=== PATIENT | male | born 1940 | race Caucasian/White ===

== ENCOUNTER 2017-08-02 13:38 | Inpatient (IN) | payer OTHER ==
[~2017-08-02] VITALS: Ht 162.6 cm; Wt 61.0 kg
[~2017-08-02 13:38] MED LIST: ACET325 PO; ACET500 PO; ALBIPROI INH; ALBU.083IS IH; ALBU3IS INH; ALBU90OI INH; AMLO5 PO; ASPI325; AZIT250 PO; Ativan0.5 MG PO; CIPR500 PO; CYCL10 PO; Calcium Carbon500 MG PO; Cipro500 MG PO; FLUO20 PO; FLUSAL1005 IH; HYDACE5 PO; HYDCHL12.5 PO; HYDGUAL120 PO; HYDR1TAB94 PO; IBUP400 PO; IBUP800 PO; LEVFLO500 PO; LEVO750; LEVO750 PO; LORA1 PO; METPRE4DP PO; MULVITMIND PO; Miralax17 GM PO; NAPR550 PO; Norco 5-325 Ta1 EACH PO; OMEP10ER PO; OMEPRAZOLE MAGN20 MG PO; OXYACE5T PO; PRED10 PO; PRED20 PO; PROBIOTIC250 MG; PROCODE120 PO; Percocet 5-3251 EACH PO; Prednisone20 MG PO; Prilosec Otc20 MG PO; SPACE CHAMBER1 EACH INH; TIOT18 INH; VENTOLIN INH; Ventolin Soln3 ML INH; [UNRECOGNIZED DRUG - OTHER] INH; [UNRECOGNIZED DRUG - REMARK]
[2017-08-02 14:09] LABS: BASOPHILS ABSOLUTE AUTO 0.06 K/mm3 (0.00-0.23); BASOPHILS PERCENT AUTO 0 % (0-2); EOSINOPHILS ABSOLUTE AUTO 0.12 K/mm3 (0.00-0.68); EOSINOPHILS PERCENT AUTO 1 % (0-6); Hematocrit 42.4 % (37.0-53.0); Hemoglobin 13.9 g/dL (13.5-17.5); IMMATURE GRAN ABSOLUTE AUTO 0.05 K/mm3 (0.00-0.10); IMMATURE GRAN PERCENT AUTO 0 % (0-1); LYMPHOCYTES ABSOLUTE AUTO 1.09 K/mm3 (0.84-5.20); LYMPHOCYTES PERCENT AUTO 8 % (21-46); MONOCYTES ABSOLUTE AUTO 0.42 K/mm3 (0.16-1.47); MONOCYTES PERCENT AUTO 3 % (4-13); Mean Corpuscular HGB 30.3 pg (26.0-34.0); Mean Corpuscular HGB Conc 32.8 g/dL (31.5-36.5); Mean Corpuscular Volume 93 fL (80-100); Mean Platelet Volume 10.4 fL (9.1-12.4); NEUTROPHILS ABSOLUTE AUTO 11.94 K/mm3 (1.96-9.15); NEUTROPHILS PERCENT AUTO 87 % (41-73); Platelet Count 262 K/mm3 (150-400); RDW Standard Deviation 47.8 fL (35.1-46.3); Red Blood Cell Count 4.58 M/mm3 (4.30-5.90); White Blood Cell Count 13.68 K/mm3 (4.00-11.30)
[2017-08-02 14:30] LABS: Alanine Aminotransfer (ALT/SGP 15 U/L (12-78); Albumin, Blood 3.7 g/dL (3.4-5.0); Alk Phos 68 U/L (50-136); Anion Gap 5 mmol/L (6-16); Aspartate Aminotrans (AST/SGOT 16 U/L (12-37); Bilirubin, Total 0.6 mg/dL (0.1-1.0); Blood Urea Nitrogen 17 mg/dL (8-24); Bun/Creatinine Ratio 17.2 (12.0-20.0); CO2, Blood 29 mmol/L (21-32); Chloride, Blood 103 mmol/L (98-108); Creatinine, Blood 0.99 mg/dL (0.60-1.20); Globulin, Blood 3.6 g/dL (2.2-4.0); Glomerular Filtration Rate >60 (60-); Glucose, Blood 122 mg/dL (70-99); Potassium, Blood 3.9 mmol/L (3.5-5.5); Sodium, Blood 137 mmol/L (136-145); Total Protein, Blood 7.3 g/dL (6.4-8.2); Troponin I <0.015 ng/mL (0.000-0.040)
[2017-08-03 05:20] LABS: BASOPHILS ABSOLUTE AUTO 0.01 K/mm3 (0.00-0.23); BASOPHILS PERCENT AUTO 0 % (0-2); EOSINOPHILS PERCENT AUTO 0 % (0-6); Hematocrit 41.3 % (37.0-53.0); Hemoglobin 13.5 g/dL (13.5-17.5); IMMATURE GRAN ABSOLUTE AUTO 0.05 K/mm3 (0.00-0.10); IMMATURE GRAN PERCENT AUTO 0 % (0-1); LYMPHOCYTES ABSOLUTE AUTO 0.44 K/mm3 (0.84-5.20); LYMPHOCYTES PERCENT AUTO 4 % (21-46); MONOCYTES ABSOLUTE AUTO 0.13 K/mm3 (0.16-1.47); MONOCYTES PERCENT AUTO 1 % (4-13); Mean Corpuscular HGB 29.4 pg (26.0-34.0); Mean Corpuscular HGB Conc 32.7 g/dL (31.5-36.5); NEUTROPHILS PERCENT AUTO 95 % (41-73); Platelet Count 207 K/mm3 (150-400); RDW Coefficient Variation 13.8 % (11.7-14.2); RDW Standard Deviation 45.1 fL (35.1-46.3); Red Blood Cell Count 4.59 M/mm3 (4.30-5.90); White Blood Cell Count 11.43 K/mm3 (4.00-11.30)
[2017-08-03 05:24] LABS: Mean Corpuscular Volume 90 fL (80-100)
[2017-08-03 05:36] LABS: Anion Gap 10 mmol/L (6-16); Blood Urea Nitrogen 19 mg/dL (8-24); Bun/Creatinine Ratio 21.1 (12.0-20.0); CO2, Blood 26 mmol/L (21-32); Calcium, Blood 8.6 mg/dL (8.5-10.1); Chloride, Blood 102 mmol/L (98-108); Glomerular Filtration Rate >60 (60-); Glucose, Blood 169 mg/dL (70-99); Potassium, Blood 3.8 mmol/L (3.5-5.5); Sodium, Blood 138 mmol/L (136-145)
[2017-08-03 10:45] LABS: Influenza A Negative (NEGATIVE); Influenza B Negative (NEGATIVE)
[2017-08-03 15:52] LABS: CHOL/HDL RATIO 2.1; Cholesterol 158 mg/dL (50-200); HDL Cholesterol 75 mg/dL (>39); LDL/HDL RATIO 0.9; Low Density Lipoprotein Chol 67 mg/dL (0-110); Triglycerides 82 mg/dL (30-160); Very Low Density Lipoprot Chol 16 mg/dL (6-32)
[2017-08-05] MEDS ORDERED: LEVFLO500 PO (11:58)
[2017-08-05] MEDS ORDERED: BENZ100A PO (11:58)
[2017-08-05] MEDS ORDERED: PRED20 PO (11:59)
== END 2017-08-05 13:03 | disposition home or self-care (01) | DRG 189 ==
LOC: ER 13:38 → MEDS 16:28 → ENPENDDIS 08-05 10:11 → MEDS 08-05 13:03
PROVIDERS: Emergency Medicine; Internal Medicine
DX: J96.01 Acute respiratory failure with hypoxia (principal); J44.1 Chronic obstructive pulmonary disease with (acute) exacerbation; K21.9 Gastro-esophageal reflux disease without esophagitis; I10 Essential (primary) hypertension; F17.220 Nicotine dependence, chewing tobacco, uncomplicated; Z86.73 Personal history of transient ischemic attack (TIA), and cerebral infarction without residual deficits; Z88.5 Allergy status to narcotic agent; Z88.0 Allergy status to penicillin; Z79.899 Other long term (current) drug therapy
CPT/HCPCS: 36415; 71046; 80048; 80053; 80061; 83036; 83605; 83880; 84484; 85025; 85379; 87040; 87070; 87077; 87186; 87205; 87804; 93005; 93010; 93306; 94640; 94760; 96374; 96375; 99285; J0456; J0696; J1650; J1885; J1956; J2920; J2930; J7030; J7050; J7120

== ENCOUNTER 2017-11-20 18:58 | Emergency (ER) | payer OTHER ==
[~2017-11-20] VITALS: Ht 162.6 cm; Wt 72.6 kg
[~2017-11-20 18:58] MED LIST changes: +BENZ100A PO
[2017-11-20] MEDS ORDERED: Norco 5-325 Ta1 EACH PO (20:20)
[2017-11-20] MEDS ORDERED: ALLO100 PO (20:20)
[2017-11-20] MEDS ORDERED: NAPR550 PO (20:20)
== END 2017-11-20 20:35 | disposition home or self-care (01) ==
LOC: ER 18:58
DX: M10.9 Gout, unspecified (principal); M19.071 Primary osteoarthritis, right ankle and foot; J44.9 Chronic obstructive pulmonary disease, unspecified; Z86.73 Personal history of transient ischemic attack (TIA), and cerebral infarction without residual deficits
CPT/HCPCS: 73600; 99283-25

== ENCOUNTER 2018-04-18 10:58 | Emergency (ER) | payer OTHER ==
[~2018-04-18] VITALS: Ht 162.6 cm; Wt 63.5 kg
[~2018-04-18 10:58] MED LIST changes: +ALLO100 PO; +Zithromax250 MG PO
[2018-04-18 12:11] LABS: BASOPHILS ABSOLUTE AUTO 0.11 K/mm3 (0.00-0.23); BASOPHILS PERCENT AUTO 2 % (0-2); EOSINOPHILS ABSOLUTE AUTO 0.34 K/mm3 (0.00-0.68); EOSINOPHILS PERCENT AUTO 7 % (0-6); Hematocrit 41.3 % (37.0-53.0); Hemoglobin 13.5 g/dL (13.5-17.5); IMMATURE GRAN PERCENT AUTO 0 % (0-1); LYMPHOCYTES ABSOLUTE AUTO 0.83 K/mm3 (0.84-5.20); LYMPHOCYTES PERCENT AUTO 16 % (21-46); MONOCYTES PERCENT AUTO 10 % (4-13); Mean Corpuscular HGB 30.3 pg (26.0-34.0); Mean Corpuscular HGB Conc 32.7 g/dL (31.5-36.5); Mean Corpuscular Volume 93 fL (80-100); Mean Platelet Volume 10.9 fL (9.1-12.4); NEUTROPHILS ABSOLUTE AUTO 3.49 K/mm3 (1.96-9.15); NEUTROPHILS PERCENT AUTO 66 % (41-73); Platelet Count 283 K/mm3 (150-400); RDW Coefficient Variation 12.9 % (11.7-14.2); RDW Standard Deviation 43.8 fL (35.1-46.3); Red Blood Cell Count 4.45 M/mm3 (4.30-5.90); White Blood Cell Count 5.27 K/mm3 (4.00-11.30)
[2018-04-18 12:29] LABS: Alanine Aminotransfer (ALT/SGP 18 U/L (12-78); Albumin, Blood 3.5 g/dL (3.4-5.0); Albumin/Globulin Ratio 0.9 (0.8-1.8); Alk Phos 72 U/L (50-136); Anion Gap 6 mmol/L (6-16); Aspartate Aminotrans (AST/SGOT 21 U/L (12-37); Bilirubin, Total 0.4 mg/dL (0.1-1.0); Blood Urea Nitrogen 13 mg/dL (8-24); CO2, Blood 29 mmol/L (21-32); Calcium, Blood 8.9 mg/dL (8.5-10.1); Chloride, Blood 105 mmol/L (98-108); Creatinine, Blood 0.87 mg/dL (0.60-1.20); Globulin, Blood 3.8 g/dL (2.2-4.0); Glomerular Filtration Rate >60 (60-); Glucose, Blood 95 mg/dL (70-99); Potassium, Blood 3.6 mmol/L (3.5-5.5); Sodium, Blood 140 mmol/L (136-145); Total Protein, Blood 7.3 g/dL (6.4-8.2); Troponin I <0.015 ng/mL (0.000-0.040)
[2018-04-18] MEDS ORDERED: Prednisone20 MG PO (13:53)
[2018-04-18] MEDS ORDERED: ALBU3IS INH (13:53)
[2018-04-18] MEDS ORDERED: Zithromax250 MG PO (13:53)
[2018-04-18] MEDS ORDERED: ROBITUSSIN COU237 ML PO (13:53)
[2018-04-18] MEDS ORDERED: TRAM50 PO (15:05)
== END 2018-04-18 15:10 | disposition home or self-care (01) ==
LOC: ER 10:58
PROVIDERS: Physician Assistant
DX: J44.1 Chronic obstructive pulmonary disease with (acute) exacerbation (principal); I10 Essential (primary) hypertension; F17.220 Nicotine dependence, chewing tobacco, uncomplicated; Z79.899 Other long term (current) drug therapy; Z88.0 Allergy status to penicillin; Z86.73 Personal history of transient ischemic attack (TIA), and cerebral infarction without residual deficits
CPT/HCPCS: 36415; 71046; 80053; 83880; 84484; 85025; 93005; 93010; 94640; 96365; 96366; 96375; 99285-25; J0456; J1885; J2930; J7050

== ENCOUNTER 2018-06-05 19:18 | Emergency (ER) | payer OTHER ==
[~2018-06-05] VITALS: Ht 162.6 cm; Wt 73.0 kg
[~2018-06-05 19:18] MED LIST changes: +ROBITUSSIN COU237 ML PO; +TRAM50 PO
[2018-06-05 21:05] LABS: Source, Urine Clean Catch
[2018-06-05 21:12] LABS: Bilirubin, Urine Neg (Neg); Blood, Urine Neg (Neg); Glucose Qualitative, Urine Neg (Neg); Ketones, Urine Neg (Neg); Leukocyte Esterase, Urine Neg (Neg); Nitrite, Urine Neg (Neg); Protein, Urine 1+ (Neg); Specific Gravity, Urine 1.025 (1.003-1.022); Urobilinogen, Urine 1+ (Normal)
[2018-06-05 21:14] LABS: Appearance, Urine Clear (Clear); Color, Urine Amber (P-Yellow)
[2018-06-05] MEDS ORDERED: Magnesium Citr296 ML PO (23:31)
== END 2018-06-05 23:43 | disposition home or self-care (01) ==
LOC: ER 19:18
PROVIDERS: Physician Assistant
DX: N43.3 Hydrocele, unspecified (principal); I86.1 Scrotal varices; I10 Essential (primary) hypertension; J45.909 Unspecified asthma, uncomplicated; Z86.73 Personal history of transient ischemic attack (TIA), and cerebral infarction without residual deficits; Z88.0 Allergy status to penicillin; Z79.2 Long term (current) use of antibiotics; Z79.52 Long term (current) use of systemic steroids; Z79.899 Other long term (current) drug therapy; Z87.891 Personal history of nicotine dependence; Z98.890 Other specified postprocedural states
CPT/HCPCS: 36415; 74176; 76870; 96374; 96375; 99284-25; J1885; J3010

== ENCOUNTER 2018-06-20 19:45 | Emergency (ER) | payer OTHER ==
[~2018-06-20] VITALS: Ht 162.6 cm; Wt 66.2 kg
[~2018-06-20 19:45] MED LIST changes: +Magnesium Citr296 ML PO
[2018-06-21 07:18] LABS: Appearance, Urine Clear (Clear); Bilirubin, Urine Neg (Neg); Blood, Urine 1+ (Neg); Color, Urine Pale Yellow (P-Yellow); Glucose Qualitative, Urine Neg (Neg); Ketones, Urine Neg (Neg); Leukocyte Esterase, Urine Neg (Neg); Nitrite, Urine Neg (Neg); Protein, Urine Neg (Neg); Specific Gravity, Urine 1.005 (1.003-1.022); Urobilinogen, Urine NORM (Normal)
[2018-06-21 07:36] LABS: Bacteria Not Seen /hpf; Red Blood Cells, Urine Rare /hpf (0-2); Squamous Epithelial Cells Not Seen /hpf (Few); White Blood Cells, Urine Not Seen /hpf (0-5)
== END 2018-06-21 00:15 | disposition home or self-care (01) ==
LOC: ER 19:45
PROVIDERS: Emergency Medicine
DX: M54.5 Low back pain (principal)
CPT/HCPCS: 72070; 72100; 72170; 81001; 96372; 99283-25; J1885

== ENCOUNTER 2018-06-26 13:55 | Inpatient (IN) | payer OTHER ==
[~2018-06-26] VITALS: Ht 162.6 cm; Wt 64.4 kg
[2018-06-26 14:51] LABS: BASOPHILS PERCENT AUTO 1 % (0-2); EOSINOPHILS PERCENT AUTO 1 % (0-6); Hemoglobin 14.2 g/dL (13.5-17.5); IMMATURE GRAN ABSOLUTE AUTO 0.06 K/mm3 (0.00-0.10); IMMATURE GRAN PERCENT AUTO 0 % (0-1); LYMPHOCYTES ABSOLUTE AUTO 0.81 K/mm3 (0.84-5.20); LYMPHOCYTES PERCENT AUTO 5 % (21-46); MONOCYTES ABSOLUTE AUTO 1.49 K/mm3 (0.16-1.47); MONOCYTES PERCENT AUTO 9 % (4-13); Mean Corpuscular HGB 30.7 pg (26.0-34.0); Mean Corpuscular HGB Conc 32.3 g/dL (31.5-36.5); Mean Corpuscular Volume 95 fL (80-100); Mean Platelet Volume 11.1 fL (9.1-12.4); NEUTROPHILS ABSOLUTE AUTO 13.54 K/mm3 (1.96-9.15); NEUTROPHILS PERCENT AUTO 84 % (41-73); Platelet Count 170 K/mm3 (150-400); RDW Coefficient Variation 14.1 % (11.7-14.2); RDW Standard Deviation 49.2 fL (35.1-46.3); Red Blood Cell Count 4.62 M/mm3 (4.30-5.90)
[2018-06-26 14:59] LABS: Influenza A Negative (NEGATIVE); Influenza B Negative (NEGATIVE)
[2018-06-26 15:16] LABS: Alanine Aminotransfer (ALT/SGP 15 U/L (12-78); Albumin, Blood 3.8 g/dL (3.4-5.0); Albumin/Globulin Ratio 1.2 (0.8-1.8); Alk Phos 79 U/L (50-136); Anion Gap 7 mmol/L (6-16); Aspartate Aminotrans (AST/SGOT 22 U/L (12-37); Bilirubin, Total 0.6 mg/dL (0.1-1.0); Blood Urea Nitrogen 18 mg/dL (8-24); Bun/Creatinine Ratio 20.6 (12.0-20.0); CO2, Blood 27 mmol/L (21-32); Chloride, Blood 103 mmol/L (98-108); Creatinine, Blood 0.87 mg/dL (0.60-1.20); Globulin, Blood 3.3 g/dL (2.2-4.0); Glomerular Filtration Rate >60 (60-); Glucose, Blood 100 mg/dL (70-99); Potassium, Blood 3.9 mmol/L (3.5-5.5); Sodium, Blood 137 mmol/L (136-145); Total Protein, Blood 7.1 g/dL (6.4-8.2)
[2018-06-26 15:28] LABS: Troponin I 0.655 ng/mL (0.000-0.040)
[2018-06-26] MEDS ORDERED: GABA100 PO (16:42)
[2018-06-26] MEDS ORDERED: IBUP400 PO (17:05)
--- NOTE | 2018-06-26 20:30 | NUR ---
2030 ADMIT: PT ARRIVES TO ROOM 215 VIA GOURNEY AND TRANSFERS SELF TO BED WITH 1 PERSON ASSIST. PT REMOVES STREET CLOTHES AND BELONGINGS PLACED IN BAG AT SIDE OF BED. PT APPEARS STEADY ON FEET BUT HAS INCREASED SOB WITH EXERTION; 2L O2 VIA NC FOR PT COMFORT. PT ORIENTED TO ROOM, BED, PHONE, CALL SYSTEM AND VERBALIZES UNDERSTANDING. PT ANTICIPATES THAT HIS SON WILL BE STAYING THE NIGHT WITH HIM. CALL LIGHT PLACED IN REACH.
[2018-06-27 05:06] LABS: BASOPHILS ABSOLUTE AUTO 0.03 K/mm3 (0.00-0.23); BASOPHILS PERCENT AUTO 0 % (0-2); EOSINOPHILS PERCENT AUTO 0 % (0-6); Hematocrit 40.4 % (37.0-53.0); Hemoglobin 12.8 g/dL (13.5-17.5); IMMATURE GRAN ABSOLUTE AUTO 0.16 K/mm3 (0.00-0.10); IMMATURE GRAN PERCENT AUTO 1 % (0-1); LYMPHOCYTES ABSOLUTE AUTO 0.43 K/mm3 (0.84-5.20); LYMPHOCYTES PERCENT AUTO 3 % (21-46); MONOCYTES ABSOLUTE AUTO 0.42 K/mm3 (0.16-1.47); MONOCYTES PERCENT AUTO 3 % (4-13); Mean Corpuscular HGB 30.6 pg (26.0-34.0); Mean Corpuscular HGB Conc 31.7 g/dL (31.5-36.5); Mean Corpuscular Volume 97 fL (80-100); Mean Platelet Volume 10.6 fL (9.1-12.4); NEUTROPHILS ABSOLUTE AUTO 15.22 K/mm3 (1.96-9.15); NEUTROPHILS PERCENT AUTO 94 % (41-73); Platelet Count 182 K/mm3 (150-400); RDW Coefficient Variation 14.1 % (11.7-14.2); RDW Standard Deviation 50.3 fL (35.1-46.3); Red Blood Cell Count 4.18 M/mm3 (4.30-5.90); White Blood Cell Count 16.26 K/mm3 (4.00-11.30)
[2018-06-27 05:30] LABS: Anion Gap 8 mmol/L (6-16); Blood Urea Nitrogen 17 mg/dL (8-24); Bun/Creatinine Ratio 17.8 (12.0-20.0); CO2, Blood 26 mmol/L (21-32); Calcium, Blood 8.3 mg/dL (8.5-10.1); Chloride, Blood 105 mmol/L (98-108); Creatinine, Blood 0.96 mg/dL (0.60-1.20); Glomerular Filtration Rate >60 (60-); Glucose, Blood 195 mg/dL (70-99); Potassium, Blood 4.1 mmol/L (3.5-5.5); Sodium, Blood 139 mmol/L (136-145)
--- NOTE | 2018-06-27 13:35 | NUR ---
CHEST AND JAW PAIN PT C/O INTERMITTENT SEVERE CHEST AND JAW PAIN. STATED COULD NOT RATE ON PAIN SCALE BUT WHEN IT OCCURRS, IT IS SEVERE. BP 118/65. RR 24. 02 SATS IN 90S. HR 99. CALLED DR ROSEN. EKG PERFORMED. SHOWED RESULTS TO DR ROSEN. ADMINISTERED 0.4 MG SL NITRO PER DR ROSEN'S VERBAL ORDER AND PLACED PT ON 2L NC. PT REPORTS PAIN IS IMPROVING.
[2018-06-27] MEDS ORDERED: Prilosec Otc20 MG PO (13:52)
--- NOTE | 2018-06-27 14:09 | NUR ---
pt reports pain to jaw and chest has resolved.
--- NOTE | 2018-06-27 14:31 | NUR ---
DR ROSEN IN TO SEE PT.
--- NOTE | 2018-06-27 18:42 | NUR ---
SUMMARY PT HAD TWO EPISODES OF CP/JAW PAIN. FIRST EPISODE, DR ROSEN NOTIFIED AND EKG DONE AND NITRO GIVEN. PAIN RESOLVED. SECOND EPISODE, NITRO GIVEN AND PAIN AGAIN RESOLVED. DISCOVERED PT HAD CHEW IN BED W/HIM. ADVISED HIM THAT MAY EXACERBATE PROBLEMS, PT HAD STAFF PUT CHEW AWAY AND SAID WOULD NO LONGER USE IT. VSS, PT VOIDING IN TOILET. HAD BM.
--- NOTE | 2018-06-27 19:11 | NUR ---
REPORT GIVEN TO ONCOMING SHIFT.
--- NOTE | 2018-06-27 23:37 | NUR ---
PT WITH ONGOING INTERMITTENT PAIN TO JAW AND CHEST TONIGHT S/P EKG,NITRO TODAY I CALL[facility] TO [facility] ONGOING. ALSO REVIEWED LABS,VS,PT MEDS ORDERS WERE WRITTEN AND NEW MEDS STARTED.TELE NOT ORDERED. EKG TO BE REPEATED IN AM.
--- NOTE | 2018-06-28 00:45 | NUR ---
RECEIVED HAND OFF FROM Erika RUIZ RN USING SBAR DURING BEDSIDE REPORT. LYING IN SEMI FOWLERS WITH EYES OPEN. C/O BILATERAL MANDIBULAR AND SUPRACALVICULAR PAIN. PT FURTHER STATES THAT PAIN OCCURS IN THE CHEST WALL AFTER HE COUGHS, RATES IT AT A 3/10. VSS, BP REMAINING LOW, BUT WITHIN LIMITS. DENIES FURTHER NEEDS OR WANTS AT THIS TIME. SAFETY MEASURES IN PLACE. WILL CONTINUE TO MONITOR.
--- NOTE | 2018-06-28 01:30 | NUR ---
LYING IN SEMI FOWLERS WITH EYES CLOSED. RESPIRATIONS EVEN AND UNLABORED. SAFETY MEASURES IN PLACE. WILL CONTINUE TO MONITOR.
--- NOTE | 2018-06-28 03:00 | NUR ---
LYING IN SEMI FOWLERS WITH EYES CLOSED. RESPIRATIONS EVEN AND UNLABORED. SAFETY MEASURES IN PLACE. WILL CONTINUE TO MONITOR.
--- NOTE | 2018-06-28 05:00 | NUR ---
LYING IN SEMI FOWLERS WITH EYES OPEN. AAO X3, HUITRON, FOLLOWS ALL COMMANDS. DENIES ANY PAIN OR DISCOMFORT AT THIS TIME. STATES THAT HE RESTED WELL THIS SHIFT AND DENIES FURTHER NEEDS AT THIS TIME. SAFETY MEASURES IN PLACE. WILL GIVE HAMD OFF TO ONCOMING SHIFT USING SBAR.
--- NOTE | 2018-06-28 12:19 | NUR ---
ABX STARTED PER EMAR ORDERS. PT TALKING ON PHONE WITH FAMILY.
--- NOTE | 2018-06-28 13:06 | NUR ---
SOB PT REPOTED INCREASED SOB TO STAFF DURING ROUNDING. O2 SATURATIONS 90% ON 2L O2. PT REPORTED BRIEF CHEST PAIN THAT HE SAID RESOLVED QUICKLY. HERBIE RT CALLED FOR BREATHING TREATMENT. PT POSSITIONED FOR EASE OF BREATHING.
--- NOTE | 2018-06-28 13:41 | NUR ---
DR. STOCKTON NOTIFIED OF INCREASED SOB AND SOME TIGHTNESS WHICH STARTED IN THE PATIENTS CHEST AND HE NOW REPORTS IN HIS UPPER ABD. PT DENIES CHEST PAIN. PT REPORTED SOB WITH UNRELIEVED AFTER A BREATHING TREATMENT. RR AND EFFORT INCREASED; RR OF 28. WILL CONTINUE TO MONITOR.
--- NOTE | 2018-06-28 13:47 | NUR ---
DR. STOCKTON TO SEE PT AT THIS TIME. WILL CONTINUE TO MONITOR.
--- NOTE | 2018-06-28 14:54 | NUR ---
Ecgicardiogram completed.
--- NOTE | 2018-06-28 15:06 | NUR ---
CHEST PAIN PT STARTED TO COMPLAIN OF CHEST PAIN AT APPROXIMATELY 1552. DR. STOCKTON WAS NOTIFIED. ORDER RECIEVED TO GIVE NITRO DESPITE PLAN FOR STRESS TEST, NITRO GIVEN AT 1456. BY 1501 PAIN AND PRESSURE TO CHEST, JAW AND LUQ RESOLVED. WILL CONTINUE TO MONITOR.
[2018-06-28 15:46] LABS: Troponin I 0.169 ng/mL (0.000-0.040)
[2018-06-28 15:49] LABS: PCO2 Arterial 41.4 mmHg (35-45); PO2 Arterial 66.2 mmHg (80-100); pH Blood Arterial 7.44 (7.35-7.45)
--- NOTE | 2018-06-28 15:58 | NUR ---
ELEVATED TROPONIN DR. STOCKTON NOTIFIED THAT LAB RESULTS ARE AVALIABLE. NOTIFIED THAT TROPONIN IS ELEVATED BUT LESS THAN PREVIOUS DRAW AND CHEST PAIN RESOLVED WITH NITRO. WILL CONTINUE TO MONITOR.
--- NOTE | 2018-06-28 17:59 | NUR ---
SHIFT SUMMARY PLAN FOR SECOND HALF OF STRESS TEST TOMORROW AFTER 3PM; PT REQUIRED NITRO X1 FOR CHEST PAIN THIS AFTERNOON. PT COMPLAINED OF SOB WHICH RESOLVED AFTER LASIX WAS GIVEN. PT IS A 1 ASSIST WHEN OOB. VSS. WILL MONITOR UNTIL REPORT TO ONCOMING RN.
--- NOTE | 2018-06-29 07:48 | NUR ---
SUMMARY PT WITH REPORT OF NO CHEST OR JAW PAIN TONIGHT. PENDING SECOND PART OF STRESS TEST TODAY. NPO AFTER BREAKFAST AND VERB UNDERSTANDING OF NO CAFFFIENE.
--- NOTE | 2018-06-29 19:47 | NUR ---
SHIFT SUMMARY PT HAS DENIED CP T/O THE SHIFT. HE HAS BEEN SOB WITH ACTIVITY BUT RECOVERS QUICKLY. PT IS A SBA WITH WALKER WHEN OOB. PT HAS HAD VISITORS AT THE BEDSIDE T/O THE DAY. REPORT GIVEN TO ALVA SANTIAGO.
--- NOTE | 2018-06-29 22:45 | NUR ---
WOULD BE MORE COMFORTABLE WITH HIS SON HELPING HIM.
--- NOTE | 2018-06-30 03:50 | NUR ---
SHIFT SUMMARY PT A&O X4 T/O SHIFT. WHEEZES IN BILAT LUNGS; COUGH NOTED; 2L O2 VIA NC. RESP TX PER RT. PT DENIES CHEST PRESSURE/PAIN AND JAW PAIN T/O SHIFT. SCD'S TO BLE'S. PT'S SON IN ROOM DURING MOST OF THE SHIFT. CALL LIGHT IN REACH; PT DEMONSTRATES USE. WCTM UNTIL REPORT TO DAY SHIFT RN.
[2018-06-30 04:31] LABS: Hematocrit 39.7 % (37.0-53.0); Hemoglobin 12.9 g/dL (13.5-17.5); Mean Corpuscular HGB 30.4 pg (26.0-34.0); Mean Corpuscular HGB Conc 32.5 g/dL (31.5-36.5); Mean Corpuscular Volume 94 fL (80-100); Mean Platelet Volume 10.9 fL (9.1-12.4); Platelet Count 250 K/mm3 (150-400); RDW Standard Deviation 48.5 fL (35.1-46.3); Red Blood Cell Count 4.24 M/mm3 (4.30-5.90); White Blood Cell Count 7.54 K/mm3 (4.00-11.30)
[2018-06-30 04:52] LABS: Anion Gap 8 mmol/L (6-16); Blood Urea Nitrogen 24 mg/dL (8-24); Bun/Creatinine Ratio 25.2 (12.0-20.0); CO2, Blood 31 mmol/L (21-32); Calcium, Blood 8.8 mg/dL (8.5-10.1); Chloride, Blood 103 mmol/L (98-108); Creatinine, Blood 0.95 mg/dL (0.60-1.20); Glomerular Filtration Rate >60 (60-); Glucose, Blood 84 mg/dL (70-99); Potassium, Blood 3.8 mmol/L (3.5-5.5); Sodium, Blood 142 mmol/L (136-145)
--- NOTE | 2018-06-30 09:00 | NUR ---
DR IN TO SEE PATIENT. PATIENT UP IN CHAIR. ENCOURAGING AMBULATION.
--- NOTE | 2018-06-30 17:45 | NUR ---
PT HAS BEEN STABLE THIS SHIFT. PT HAS BEEN TITRATED TO ROOM AIR. PT HAS TAKEN SEVERAL SHORT WALKS WITH 1 PERSON ASSIST. PT HAS SOB WITH MUCH EXERTION. LS WITH WHEEZES T/O. PT HAS DRY COUGH. CONT IV ABX. SON AT BEDSIDE, ATTENTIVE. PT EATING AND VOIDING WELL. USES CALL LIGHT APPROPRIATELY PRN.
--- NOTE | 2018-07-01 18:40 | NUR ---
SHIFT SUMMARY PT A&OX4, VSS, [employer], RA WHILE AWAKE, 1L AT REST. AMB IND TO BRP AND HALLWAY, SON IS AT PT SIDE. SL EXCEPT FOR ABX 1XP, NEBS SCHED. PAIN MED 5 MG X1. PLAN IS FOR PT TO DC TOMORROW. WCTM & TX PER EMAR UNTIL REPORT GIVEN TO ONCOMING NOC RN.
--- NOTE | 2018-07-02 06:20 | NUR ---
LYING IN SEMI FOWLERS WITH EYES OPEN WHILE DRINKING COFFEE. MEDICATED FOR PAIN X1 THIS SHIFT. HAS HAD NO OTHER C/O PAIN OR DISCOMFORT. DENIES FURTHER NEEDS AT THIS TIME. SAFETY MEASURES IN PLACE. WILL GIVE HAND OFF TO ONCOMING SHIFT USING SBAR.
[2018-07-02] MEDS ORDERED: ACET325 PO (12:12)
[2018-07-02] MEDS ORDERED: DOXY100 PO (12:13)
[2018-07-02] MEDS ORDERED: ALBU3IS INH (12:13)
[2018-07-02] MEDS ORDERED: FURO20 PO (12:14)
[2018-07-02] MEDS ORDERED: GUAI600T33 PO (12:16)
[2018-07-02] MEDS ORDERED: Acidophilus La100 GM PO (12:17)
[2018-07-02] MEDS ORDERED: DULERA 200 MCG/13 GM INH (12:18)
[2018-07-02] MEDS ORDERED: DELTASONE20 MG PO (12:19)
--- NOTE | 2018-07-02 13:09 | NUR ---
DISCHARGE PT PROVIDED WITH WRITTEN AND VERBAL DISCHARGE INSTRUCTIONS. PT AND FAMILY REPORTED UNDERSTANDING INSTRUCTIONS. PRESCRIPTIONS FAXED TO PT'S PHARMACY.
== END 2018-07-02 13:09 | disposition home or self-care (01) | DRG 871 ==
LOC: ER 13:55 → SURS 16:35 → ERHOLD 16:35 → SURS 20:39 → ENPENDDIS 07-02 09:51 → SURS 07-02 13:09
PROVIDERS: Physician Assistant; ADMIT Internal Medicine
DX: A41.01 Sepsis due to Methicillin susceptible Staphylococcus aureus (principal); J18.9 Pneumonia, unspecified organism; J44.1 Chronic obstructive pulmonary disease with (acute) exacerbation; J44.0 Chronic obstructive pulmonary disease with (acute) lower respiratory infection; E44.0 Moderate protein-calorie malnutrition; R65.20 Severe sepsis without septic shock; K21.9 Gastro-esophageal reflux disease without esophagitis; I10 Essential (primary) hypertension; R07.9 Chest pain, unspecified; G89.29 Other chronic pain; M54.9 Dorsalgia, unspecified; Z51.5 Encounter for palliative care; Z88.0 Allergy status to penicillin; Z86.73 Personal history of transient ischemic attack (TIA), and cerebral infarction without residual deficits; Z87.891 Personal history of nicotine dependence; Z68.24 Body mass index [BMI] 24.0-24.9, adult
CPT/HCPCS: 36415; 36600; 71046; 78452; 80048; 80053; 82550; 82803; 83605; 83880; 84145; 84484; 85025; 85027; 87040; 87070; 87077; 87186; 87205; 87804; 93005; 93010; 93017; 93306; 94640; 94760; 96361; 96365; 96375; 97110; 97162; 97530; 99285-25; A9270-GY; A9500; J0456; J0696; J0706; J1650; J1885; J1940; J1956; J2405; J2785; J7030; J7050

== ENCOUNTER 2019-01-09 19:54 | Emergency (ER) | payer OTHER ==
[~2019-01-09] VITALS: Ht 162.6 cm; Wt 69.0 kg
[~2019-01-09 19:54] MED LIST changes: +ASPI81CH PO; +Acidophilus La100 GM PO; +DELTASONE20 MG PO; +DOXY100 PO; +DULERA 200 MCG/13 GM INH; +FURO20 PO; +GABA100 PO; +GUAI600T33 PO
[2019-01-09] MEDS ORDERED: Benadryl Itch28.3 G1 TOP (21:44)
[2019-01-09] MEDS ORDERED: METPRE4DP PO (21:44)
== END 2019-01-09 22:11 | disposition home or self-care (01) ==
LOC: ER 19:54
DX: T60.1X1A Toxic effect of halogenated insecticides, accidental (unintentional), initial encounter (principal); L25.3 Unspecified contact dermatitis due to other chemical products; M75.32 Calcific tendinitis of left shoulder; I10 Essential (primary) hypertension; J45.909 Unspecified asthma, uncomplicated; Z86.73 Personal history of transient ischemic attack (TIA), and cerebral infarction without residual deficits; Z87.891 Personal history of nicotine dependence; Z88.0 Allergy status to penicillin; Z88.5 Allergy status to narcotic agent; Z79.82 Long term (current) use of aspirin; Z79.899 Other long term (current) drug therapy
CPT/HCPCS: 73030; 94640; 96372; 99283-25; A9270-GY; J3301

== ENCOUNTER 2019-01-27 18:08 | Emergency (ER) | payer OTHER ==
[~2019-01-27] VITALS: Ht 167.6 cm; Wt 72.6 kg
[~2019-01-27 18:08] MED LIST changes: +Benadryl Itch28.3 G1 TOP
[2019-01-27] MEDS ORDERED: Norco 5-325 Ta1 EACH PO (18:25)
== END 2019-01-27 18:57 | disposition home or self-care (01) ==
LOC: ER 18:08
DX: M54.2 Cervicalgia (principal); Z88.0 Allergy status to penicillin; Z88.5 Allergy status to narcotic agent; Z79.899 Other long term (current) drug therapy; Z79.82 Long term (current) use of aspirin; Z79.52 Long term (current) use of systemic steroids; I10 Essential (primary) hypertension; J45.909 Unspecified asthma, uncomplicated; Z86.73 Personal history of transient ischemic attack (TIA), and cerebral infarction without residual deficits; F17.220 Nicotine dependence, chewing tobacco, uncomplicated
CPT/HCPCS: 99283; A9270-GY

== ENCOUNTER 2019-03-14 18:33 | Emergency (ER) | payer OTHER ==
[~2019-03-14] VITALS: Ht 162.6 cm; Wt 70.8 kg
[~2019-03-14 18:33] MED LIST changes: +Baclofen10 MG PO
[2019-03-14 19:22] LABS: BASOPHILS ABSOLUTE AUTO 0.08 K/mm3 (0.00-0.23); BASOPHILS PERCENT AUTO 1 % (0-2); EOSINOPHILS ABSOLUTE AUTO 0.25 K/mm3 (0.00-0.68); EOSINOPHILS PERCENT AUTO 4 % (0-6); Hematocrit 43.5 % (37.0-53.0); Hemoglobin 14.4 g/dL (13.5-17.5); IMMATURE GRAN ABSOLUTE AUTO 0.01 K/mm3 (0.00-0.10); IMMATURE GRAN PERCENT AUTO 0 % (0-1); LYMPHOCYTES ABSOLUTE AUTO 1.27 K/mm3 (0.84-5.20); LYMPHOCYTES PERCENT AUTO 21 % (21-46); MONOCYTES ABSOLUTE AUTO 0.63 K/mm3 (0.16-1.47); MONOCYTES PERCENT AUTO 10 % (4-13); Mean Corpuscular HGB Conc 33.1 g/dL (31.5-36.5); Mean Corpuscular Volume 94 fL (80-100); Mean Platelet Volume 10.4 fL (9.1-12.4); NEUTROPHILS ABSOLUTE AUTO 3.87 K/mm3 (1.96-9.15); NEUTROPHILS PERCENT AUTO 63 % (41-73); Platelet Count 300 K/mm3 (150-400); RDW Standard Deviation 47.8 fL (35.1-46.3); Red Blood Cell Count 4.65 M/mm3 (4.30-5.90); White Blood Cell Count 6.11 K/mm3 (4.00-11.30)
[2019-03-14 19:42] LABS: Alanine Aminotransfer (ALT/SGP 15 U/L (12-78); Albumin, Blood 3.7 g/dL (3.4-5.0); Alk Phos 81 U/L (50-136); Anion Gap 8 mmol/L (6-16); Aspartate Aminotrans (AST/SGOT 16 U/L (12-37); Bilirubin, Total 0.6 mg/dL (0.1-1.0); Blood Urea Nitrogen 17 mg/dL (8-24); Bun/Creatinine Ratio 13.8 (12.0-20.0); CO2, Blood 27 mmol/L (21-32); Calcium, Blood 9.6 mg/dL (8.5-10.1); Chloride, Blood 104 mmol/L (98-108); Creatinine, Blood 1.23 mg/dL (0.60-1.20); Globulin, Blood 3.7 g/dL (2.2-4.0); Glomerular Filtration Rate >60 (60-); Glucose, Blood 131 mg/dL (70-99); Potassium, Blood 3.6 mmol/L (3.5-5.5); Sodium, Blood 139 mmol/L (136-145); Total Protein, Blood 7.4 g/dL (6.4-8.2)
[2019-03-14 21:28] LABS: Source, Urine Clean Catch
[2019-03-14 21:33] LABS: Bilirubin, Urine Neg (Neg); Blood, Urine Neg (Neg); Glucose Qualitative, Urine Neg (Neg); Ketones, Urine 1+ (Neg); Leukocyte Esterase, Urine Neg (Neg); Nitrite, Urine Neg (Neg); Protein, Urine 1+ (Neg); Specific Gravity, Urine 1.015 (1.003-1.022); Urobilinogen, Urine 2+ (Normal)
[2019-03-14 21:36] LABS: Appearance, Urine Clear (Clear); Color, Urine Yellow (P-Yellow)
[2019-03-14] MEDS ORDERED: Zofran4 MG PO (22:43)
[2019-03-14] MEDS ORDERED: Pepcid20 MG PO (22:43)
== END 2019-03-14 23:04 | disposition home or self-care (01) ==
LOC: ER 18:33
PROVIDERS: Physician Assistant
DX: K52.9 Noninfective gastroenteritis and colitis, unspecified (principal); K29.70 Gastritis, unspecified, without bleeding; E86.0 Dehydration; I10 Essential (primary) hypertension; F17.220 Nicotine dependence, chewing tobacco, uncomplicated; Z86.73 Personal history of transient ischemic attack (TIA), and cerebral infarction without residual deficits; Z88.0 Allergy status to penicillin; Z88.5 Allergy status to narcotic agent
CPT/HCPCS: 36415; 71046; 80053; 83690; 85025; 93005; 93010; 94640; 96374; 96375; 99284-25; A9270-GY; C9113; J2405; J7120

== ENCOUNTER 2019-06-26 08:55 | Day surgery (SDC) | payer OTHER ==
[~2019-06-26] VITALS: Ht 162.6 cm; Wt 65.7 kg
[~2019-06-26 08:55] MED LIST changes: +AIRDUO RESPICL1 EAC2 INH; +ASPIRIN PO; +ATOR10 PO; +Aspir 8181 MG PO; +COLCHICINE0.6 MG PO; +DICLOFENAC SOD100 G1 TOP; +GABA300 PO; +IPRATROPIUM-ALBUTERO INH; +LEXAPRO5 MG PO; +PROAIR DIGIHAL90 MCG INH; +Pepcid20 MG PO; +Zofran4 MG PO
[2019-06-26] MEDS ORDERED: PRED20 PO (09:53)
== END 2019-06-26 11:40 | disposition home or self-care (01) ==
LOC: ORSCSDS 08:55
PROVIDERS: Ophthalmology
PROC: 08RJ3JZ Replacement of Right Lens with Synthetic Substitute, Percutaneous Approach (ICD-10-PCS; principal; 2019-06-26 10:30)
DX: H25.11 Age-related nuclear cataract, right eye (principal); I10 Essential (primary) hypertension; J44.9 Chronic obstructive pulmonary disease, unspecified; I25.10 Atherosclerotic heart disease of native coronary artery without angina pectoris; E78.5 Hyperlipidemia, unspecified; Z79.899 Other long term (current) drug therapy
CPT/HCPCS: J2001; J2250; J3010; J3301; J7040; V2632

== ENCOUNTER 2019-09-28 20:51 | Emergency (ER) | payer OTHER ==
[~2019-09-28] VITALS: Ht 162.6 cm; Wt 74.8 kg
== END 2019-09-28 23:11 | disposition left against medical advice (07) ==
LOC: ER 20:51
DX: Z53.21 Procedure and treatment not carried out due to patient leaving prior to being seen by health care provider (principal)

== ENCOUNTER → 2020-01-02 | Outpatient (CLI) | payer OTHER ==
[~2020-01-02] MED LIST changes: +Aspirin EC81 MG PO; +Cymbalta20 MG PO; +DULERA 200 MCG-13 GM INH; +INDO50 PO; +IPRAT-ALBUT 0.5-3 ML INH; +ONDA4ODT MM; +Voltaren100 GM
[2020-01-02 19:14] LABS: U Amphetamine Screen Not Detected; U Barbituate Screen Not Detected; U Benzodiazapine Screen Not Detected; U Buprenorphine Screen Not Detected; U Cannabinoids Screen Not Detected; U Cocaine Screen Not Detected; U Methadone Screen Not Detected; U Methamphetamine Screen Not Detected; U Opiates Screen Not Detected; U Oxycodone Screen Not Detected; U Phencyclidine Screen Not Detected; U Propoxyphene Screen Not Detected
== END | disposition home or self-care (01) ==
LOC: LAB 17:32 → LAB SHORT 17:32
PROVIDERS: Family Medicine
DX: Z51.81 Encounter for therapeutic drug level monitoring (principal); Z79.899 Other long term (current) drug therapy

== ENCOUNTER 2020-10-20 05:04 | Inpatient (IN) | payer OTHER ==
[~2020-10-20] VITALS: Ht 162.6 cm; Wt 58.5 kg
[2020-10-20 05:22] LABS: Base Excess Venous 0.7 mmol/L; Bicarbonate Venous 23.9 mmol/L (24.0-30.0); PCO2 Venous 57.8 mmHg (38-42); PO2 Venous 61.4 mmHg (38-42); pH Blood Venous 7.28 (7.34-7.37)
[2020-10-20 05:23] LABS: BASOPHILS ABSOLUTE AUTO 0.13 K/mm3 (0.00-0.23); BASOPHILS PERCENT AUTO 2 % (0-2); EOSINOPHILS ABSOLUTE AUTO 0.52 K/mm3 (0.00-0.68); EOSINOPHILS PERCENT AUTO 7 % (0-6); Hematocrit 38.6 % (37.0-53.0); Hemoglobin 12.3 g/dL (13.5-17.5); IMMATURE GRAN ABSOLUTE AUTO 0.02 K/mm3 (0.00-0.10); IMMATURE GRAN PERCENT AUTO 0 % (0-1); LYMPHOCYTES ABSOLUTE AUTO 2.85 K/mm3 (0.84-5.20); LYMPHOCYTES PERCENT AUTO 37 % (21-46); MONOCYTES ABSOLUTE AUTO 0.71 K/mm3 (0.16-1.47); MONOCYTES PERCENT AUTO 9 % (4-13); Mean Corpuscular HGB 29.6 pg (26.0-34.0); Mean Corpuscular HGB Conc 31.9 g/dL (31.5-36.5); Mean Corpuscular Volume 93 fL (80-100); Mean Platelet Volume 11.2 fL (9.1-12.4); NEUTROPHILS ABSOLUTE AUTO 3.56 K/mm3 (1.96-9.15); NEUTROPHILS PERCENT AUTO 46 % (41-73); Platelet Count 236 K/mm3 (150-400); RDW Coefficient Variation 15.2 % (11.7-14.2); RDW Standard Deviation 52.3 fL (35.1-46.3); Red Blood Cell Count 4.16 M/mm3 (4.30-5.90); White Blood Cell Count 7.79 K/mm3 (4.00-11.30)
[2020-10-20 05:46] LABS: Alanine Aminotransfer (ALT/SGP 12 U/L (12-78); Albumin, Blood 3.5 g/dL (3.4-5.0); Albumin/Globulin Ratio 0.9 (0.8-1.8); Alk Phos 77 U/L (50-136); Anion Gap 7 mmol/L (6-16); Aspartate Aminotrans (AST/SGOT 20 U/L (12-37); Bilirubin, Total 0.3 mg/dL (0.1-1.0); Blood Urea Nitrogen 22 mg/dL (8-24); Bun/Creatinine Ratio 18.5 (12.0-20.0); CO2, Blood 27 mmol/L (21-32); Calcium, Blood 8.5 mg/dL (8.5-10.1); Chloride, Blood 104 mmol/L (98-108); Creatinine, Blood 1.19 mg/dL (0.60-1.20); Globulin, Blood 3.8 g/dL (2.2-4.0); Glomerular Filtration Rate >60 (60-); Glucose, Blood 151 mg/dL (70-99); Potassium, Blood 3.8 mmol/L (3.5-5.5); Sodium, Blood 138 mmol/L (136-145); Total Protein, Blood 7.3 g/dL (6.4-8.2); Troponin I 0.021 ng/mL (0.000-0.040)
[2020-10-20] MEDS ORDERED: HYDROCODONE-AC1 EAC7 PO (10:47)
[2020-10-20] MEDS ORDERED: NEURONTIN300 MG PO (10:47)
[2020-10-20] MEDS ORDERED: INDO50 PO (10:47)
[2020-10-20] MEDS ORDERED: Ventolin/Prove6.7 GM INH ×2 (10:47→10:48)
[2020-10-20 14:23] LABS: Base Excess Venous 4.1 mmol/L; Bicarbonate Venous 26.7 mmol/L (24.0-30.0); PCO2 Venous 41.4 mmHg (38-42); PO2 Venous 27.8 mmHg (38-42); pH Blood Venous 7.44 (7.34-7.37)
[2020-10-20 14:46] LABS: International Normalized Ratio 1.08; Prothrombin Time Results 11.6 Sec (9.7-11.5)
[2020-10-20] MEDS ORDERED: OMEP20ER PO (15:04)
[2020-10-20 16:33] LABS: SARS-Cov-2 (COVID-19) PCR, MMC NEGATIVE (NEGATIVE)
--- NOTE | 2020-10-20 19:31 | NUR ---
ADMISSION, SHIFT SUMMARY PT ARRIVED TO PCU THIS AFTERNOON. PT DENIED CP AND SOB UPON ADMISSION, NITRO PASTE PATCH IN PLACE. PT ON 2L O2 VIA NC. VS STABLE. PT SBA TRANSFER. PT ON HEPARIN GTT. TROPS ELEVATED BUT HAVE STARTED TRENDING DOWNARD. DR. SOLANO CONSULTED IN THE ED. PT IS ALERT AND ORIENTED. FAMILY REPORTS THAT THE PT OCCASSIONALLY HAS CONFUSION IN THE EVENING AND UNDERLYING MILD DEMENTIA. PT IS RESTING IN BED AT THIS TIME
[2020-10-21 05:32] LABS: BASOPHILS ABSOLUTE AUTO 0.02 K/mm3 (0.00-0.23); BASOPHILS PERCENT AUTO 0 % (0-2); EOSINOPHILS PERCENT AUTO 0 % (0-6); Hemoglobin 11.3 g/dL (13.5-17.5); IMMATURE GRAN ABSOLUTE AUTO 0.02 K/mm3 (0.00-0.10); IMMATURE GRAN PERCENT AUTO 0 % (0-1); LYMPHOCYTES ABSOLUTE AUTO 1.12 K/mm3 (0.84-5.20); LYMPHOCYTES PERCENT AUTO 15 % (21-46); MONOCYTES ABSOLUTE AUTO 0.66 K/mm3 (0.16-1.47); MONOCYTES PERCENT AUTO 9 % (4-13); Mean Corpuscular HGB 29.4 pg (26.0-34.0); Mean Corpuscular HGB Conc 32.3 g/dL (31.5-36.5); Mean Corpuscular Volume 91 fL (80-100); Mean Platelet Volume 11.4 fL (9.1-12.4); NEUTROPHILS ABSOLUTE AUTO 5.81 K/mm3 (1.96-9.15); NEUTROPHILS PERCENT AUTO 76 % (41-73); Platelet Count 221 K/mm3 (150-400); RDW Coefficient Variation 15.4 % (11.7-14.2); RDW Standard Deviation 52.1 fL (35.1-46.3); Red Blood Cell Count 3.84 M/mm3 (4.30-5.90); White Blood Cell Count 7.63 K/mm3 (4.00-11.30)
[2020-10-21 06:03] LABS: Alanine Aminotransfer (ALT/SGP 10 U/L (12-78); Albumin, Blood 3.2 g/dL (3.4-5.0); Albumin/Globulin Ratio 0.9 (0.8-1.8); Alk Phos 66 U/L (50-136); Anion Gap 5 mmol/L (6-16); Aspartate Aminotrans (AST/SGOT 15 U/L (12-37); Bilirubin, Total 0.5 mg/dL (0.1-1.0); Blood Urea Nitrogen 26 mg/dL (8-24); Bun/Creatinine Ratio 20.8 (12.0-20.0); CO2, Blood 30 mmol/L (21-32); Calcium, Blood 8.9 mg/dL (8.5-10.1); Chloride, Blood 102 mmol/L (98-108); Cholesterol 156 mg/dL (50-200); Creatinine, Blood 1.25 mg/dL (0.60-1.20); Globulin, Blood 3.5 g/dL (2.2-4.0); Glomerular Filtration Rate 59 (60-); Glucose, Blood 112 mg/dL (70-99); Magnesium, Blood 1.7 mg/dL (1.6-2.4); Potassium, Blood 3.7 mmol/L (3.5-5.5); Sodium, Blood 137 mmol/L (136-145); Total Protein, Blood 6.7 g/dL (6.4-8.2); Triglycerides 56 mg/dL (30-160); Very Low Density Lipoprot Chol 11 mg/dL (6-32)
[2020-10-21 06:11] LABS: CHOL/HDL RATIO 2.6; HDL Cholesterol 60 mg/dL (>39); LDL/HDL RATIO 1.4; Low Density Lipoprotein Chol 85 mg/dL (0-110)
--- NOTE | 2020-10-21 06:48 | NUR ---
SHIFT SUMMARY PT A&O TO SELF. FORGETFUL. STATING "NO ONE HAS GIVEN ME ANY MEDS ALL NIGHT" DESPITE MEDS GIVEN 15 MIN PRIOR TO PT STATEMENT. PT ANGRY THIS AM, STATING "I WANT MY FAMILY IN HERE RIGHT NOW. MY FAMILY DOESN'T KNOW WHERE I AM BECAUSE YOU GUYS ARE HIDING ME FROM THEM." PT UNABLE TO STATE WHERE HE IS. PT VSS. SPO2 > 92% ON 1L NC CURRENTLY, O2 RANGING FROM RA TO 2L NC THIS SHIFT. MONITOR SHOWING SR, HR 80's. NO EVENTS OVER NIGHT BESIDES CONFUSION. HEPARIN GTT INFUSING PER ORDERS.
--- NOTE | 2020-10-21 11:04 | NUR ---
PT ALERT AND ORIENTED TO SELF AND ANSWERING CARE QUESTIONS. ABLE TO TELL ME WHY HE IS HERE AND ABOUT HIS PREVIOUS CHEST PAIN. PER REPORT HE DOES HAVE SOME CONFUSION AT TIMES. ON 1L O2 SATING ABOVE 94%. TELE SHOWING SINUS WITH HR 70'S. DENIES CHEST PAIN/PRESSURE AT THIS TIME. COMPLAINS OF NECK PAIN. SCHEDULED PAIN MED GIVEN WITH RELIEF. BOWEL TONES HEARD. BRUISING THROUGHOUT. PT SMILEY AND COOPERATIVE WITH CARE. CALL LIGHT IN REACH. CALLING TO USE BATHROOM. SBA. USING URINAL AT BEDSIDE. NPO AT THIS TIME FOR CARDIOLOGY CONSULT. WILL CONTINUE TO MONITOR.
--- NOTE | 2020-10-21 13:31 | NUR ---
CARDIOLOGY IN TO SEE PATIENT. PLAN FOR CATH TOMORROW. DAUGHTER ON PHONE AT TIME AND AWARE. CONSENT SIGNED AND IN CHART. NEW ORDERS. PLAN TO START FLUIDS TONIGHT AT 2330, SEE ORDERS. NPO AT MIDNIGHT. PATIENT EATING AND DRINKING NOW. CALLING FOR BATHROOM ASSISTANCE. VITAL SIGNS STABLE, WILL CONTINUE TO MONITOR.
--- NOTE | 2020-10-21 17:37 | NUR ---
NO ACUTE CHANGES. PT COMPLAINS OF NECK PAIN, MEDICATED PER EMAR AND SCHEDULED MEDS. VITAL SIGNS REMAIN STABLE. DENIES NEEDS. CALL LIGHT IN REACH. SEE PREVIOUS NOTE FOR UPDATES. PLAN FOR NPO AT MIDNIGHT. ANGIO TOMORROW. WILL CONTINUE TO MONITOR AND REPORT OFF.
--- NOTE | 2020-10-21 19:49 | NUR ---
PT MED REQ PT'S DAUGHTER STATED PT TAKES GABAPENTIN TID. THIS IS CONFIRMED IN PT'S MED REQ. CALL PLACED TO MD MOYA. MD MOYA W/ ORDERS FOR GABAPENTIN, SEE EMAR.
[2020-10-22 04:16] LABS: BASOPHILS ABSOLUTE AUTO 0.01 K/mm3 (0.00-0.23); BASOPHILS PERCENT AUTO 0 % (0-2); EOSINOPHILS PERCENT AUTO 0 % (0-6); Hematocrit 33.4 % (37.0-53.0); IMMATURE GRAN ABSOLUTE AUTO 0.02 K/mm3 (0.00-0.10); IMMATURE GRAN PERCENT AUTO 0 % (0-1); LYMPHOCYTES ABSOLUTE AUTO 0.73 K/mm3 (0.84-5.20); LYMPHOCYTES PERCENT AUTO 12 % (21-46); MONOCYTES ABSOLUTE AUTO 0.21 K/mm3 (0.16-1.47); MONOCYTES PERCENT AUTO 3 % (4-13); Mean Corpuscular HGB 29.9 pg (26.0-34.0); Mean Corpuscular HGB Conc 32.9 g/dL (31.5-36.5); Mean Corpuscular Volume 91 fL (80-100); Mean Platelet Volume 11.5 fL (9.1-12.4); NEUTROPHILS ABSOLUTE AUTO 5.25 K/mm3 (1.96-9.15); NEUTROPHILS PERCENT AUTO 84 % (41-73); Platelet Count 223 K/mm3 (150-400); RDW Coefficient Variation 15.6 % (11.7-14.2); RDW Standard Deviation 51.8 fL (35.1-46.3); Red Blood Cell Count 3.68 M/mm3 (4.30-5.90); White Blood Cell Count 6.22 K/mm3 (4.00-11.30)
[2020-10-22 04:30] LABS: Anion Gap 4 mmol/L (6-16); Blood Urea Nitrogen 24 mg/dL (8-24); Bun/Creatinine Ratio 19.7 (12.0-20.0); CO2, Blood 29 mmol/L (21-32); Calcium, Blood 8.5 mg/dL (8.5-10.1); Chloride, Blood 103 mmol/L (98-108); Creatinine, Blood 1.22 mg/dL (0.60-1.20); Glomerular Filtration Rate >60 (60-); Glucose, Blood 125 mg/dL (70-99); Potassium, Blood 3.8 mmol/L (3.5-5.5); Sodium, Blood 136 mmol/L (136-145)
--- NOTE | 2020-10-22 06:17 | NUR ---
SHIFT SUMMARY NO ACUTE CHANGES THIS SHIFT. PT A&OX3. IMPULSIVE, DOES NOT USE CALL LIGHT, SO BED ALARM HAS BEEN ON. SP02>92% ON 1L NC. TELEMETYR READS SR W/ PVCS, HR 90'S. PT DENIES PAIN. STANDS AT BEDSIDE TO USE URINAL MULTIPLE TIMES THIS SHIFT. HEPARIN INFUSING PER EMAR. FLUIDS STARTED THIS SHIFT AND INFUSING PER EMAR. MEDS IN APPLESAUCE. CALL LIGHT IN REACH. BED ALARM ON. WILL GIVE REPORT TO ONCOMING NURSE.
--- NOTE | 2020-10-22 10:44 | NUR ---
PT ALERT TO SELF AND FAMILY. CONFUSED THIS AM TO WHERE HE WAS AT. PT ABLE TO CALM DOWN WITH REASSURANCE. PLAN OF CARE AND PLAN FOR TODAY DISCUSSED AND QUESTIONS ANSWERED. ON 1 L O2 SATING ABOVE 94%. TELE SHOWING SINUS WITH PVC'S AND 1ST DEGREE BLOCK. ONE EPISODE OF VTACH THIS AM, NONSYMPTOMATIC. DENIES CHEST PAIN/PRESSURE. VITAL SIGNS STABLE. BOWEL TONES HEARD. LARGE BM THIS AM. USING URINAL AT BEDSIDE WITH ASSISTANCE. STAND BY ASSIST AND BED ALARM ON. LEFT FOR ANGIO AT 1000. CALL PLACED TO UPDATE DAUGHTER AND MESSAGE LEFT.
--- NOTE | 2020-10-22 12:33 | NUR ---
[facility] RIGHT RADIAL SIGHT TR BAND WITH 20ML IN PLACE. PLAN TO START DEFLATING AT 1315. ARM BOARD IN PLACE. EDUCATION PROVIDED. PT SITTING IN BED EATING LUNCH. VITAL SIGNS STABLE. SIGHT WNL, NO SIGNS OF BLEEDING. SOFT AND NONTENDER. SCANT AMOUNT OF DRAINAGE UNDER TR BAND UNCHANGED. FAMILY AT BEDSIDE, DR. RUSHING IN TO DISCUSS PLAN. PLAN TO TRANSFER TO [facility] FOR CABG.
--- NOTE | 2020-10-22 15:53 | NUR ---
ALL AIR FROM TR BAND REMOVED. SIGHT UNCHANGED. REMAINS SOFT AND NON TENDER. ARM BOARD IN PLACE. STRONG RADIAL PULSE. WILL REMOVE TR BAND IN ONE HOUR.
--- NOTE | 2020-10-22 18:19 | NUR ---
NO ACUTE CHANGES. RIGHT RADIAL SIGHT WNL. ARM BOARD IN PLACE. EDUCATION PROVIDED TO PATIENT. VITAL SIGNS STABLE. SEE PREVIOUS NOTES. EATING DINNER AND WATCHING TV. ABLE TO USE URINAL IN BED AND AT BEDSIDE. BED ALARM ON FOR IMPULSIVENESS. PATIENT FORGETFUL AT TIMES. DAUGHTERS NUMBER WRITTEN ON WHITEBOARD AND IN CHART FOR UPDATES. PLAN TO TRANSFER TOMORROW. WILL CONTINUE TO MONITOR AND REPORT OFF.
--- NOTE | 2020-10-22 20:16 | NUR ---
TRANSFER REPORT CALLED TO SAI RN BY DAY SHIFT NURSEJAZMIN. PT BEING [place] TRANSFERRED. TRANSFER TEAM IN ROOM TO GET PT. PT ALERT, SP0>92% ON RA, TELEMETRY SR W/ PVCS. PTS BELONGING WITH PT. PT LEFT WITH TRANSFER TEAM AT APPROX 2014.
== END 2020-10-22 20:14 | disposition short-term general hospital (02) | DRG 281 ==
LOC: ER 05:04 → PCU 11:37
PROVIDERS: Nurse Practitioner Acute Care; Student in an Organized Health Care Education/Training Program; ADMIT Internal Medicine
PROC: 5A09357 Assistance with Respiratory Ventilation, Less than 24 Consecutive Hours, Continuous Positive Airway Pressure (ICD-10-PCS; principal; 2020-10-20)
PROC: B2111ZZ Fluoroscopy of Multiple Coronary Arteries using Low Osmolar Contrast (ICD-10-PCS; 2020-10-22)
PROC: 4A033BC Measurement of Arterial Pressure, Coronary, Percutaneous Approach (ICD-10-PCS; 2020-10-22)
DX: I21.4 Non-ST elevation (NSTEMI) myocardial infarction (principal); J44.1 Chronic obstructive pulmonary disease with (acute) exacerbation; F41.9 Anxiety disorder, unspecified; I10 Essential (primary) hypertension; Z96.651 Presence of right artificial knee joint; Z20.822 Contact with and (suspected) exposure to COVID-19; I27.21 Secondary pulmonary arterial hypertension; Z66 Do not resuscitate; I35.0 Nonrheumatic aortic (valve) stenosis; I25.10 Atherosclerotic heart disease of native coronary artery without angina pectoris; F03.90 Unspecified dementia, unspecified severity, without behavioral disturbance, psychotic disturbance, mood disturbance, and anxiety; K21.9 Gastro-esophageal reflux disease without esophagitis; I48.91 Unspecified atrial fibrillation; Z88.0 Allergy status to penicillin; Z88.5 Allergy status to narcotic agent; Z86.73 Personal history of transient ischemic attack (TIA), and cerebral infarction without residual deficits; Z90.49 Acquired absence of other specified parts of digestive tract; Z98.890 Other specified postprocedural states; Z87.891 Personal history of nicotine dependence; Z79.82 Long term (current) use of aspirin; Z79.899 Other long term (current) drug therapy
CPT/HCPCS: 36415; 71045; 71260; 76937; 80048; 80053; 80061; 82803; 83735; 83880; 84145; 84484; 85025; 85347; 85610; 85730; 93005; 93010; 93306; 93454; 93571; 94640; 94660; 94762; 96374; 99152; 99153; 99285-25; A9270; C1769; C1887; C1894; J1644; J1940; J2250; J3010; J3475; J7030; J7050; J7512; Q9967; U0004